=== PATIENT | female | born 1985 ===

== ENCOUNTER → 2017-08-22 | Day surgery (SDC) | payer BC ==
[~2017-08-22] MED LIST: LIDOCAINE HCL 1% PF 30 ML VIAL ONE
[2017-08-22 13:18] VITALS: BP 126/84; PULSE 98; RESP 16; TEMP 98; O2SAT 100
--- NOTE | 2017-08-22 14:24 | RADRPT ---
EXAM DATE/TIME: 08/22/2017 13:20 [place] COMPARISON: No previous studies available for comparison. EXTERNAL COMPARISON: [facility] US, US THYROID, Aug 16 2017. INDICATIONS : Left thyroid nodule. MEDICAL HISTORY : PFO heart SURGICAL HISTORY : None. ENCOUNTER: Initial ACUITY: > 1 yr PAIN SCORE: 1/10 LOCATION: Left neck ORGAN: Left thyroid lobe SPECIMENS: Four fine needle aspirate(s) submitted for pathologic evaluation. DEVICE: 22 gauge needle Post procedure scanning reveals no hematoma or other complication. The possibility does exist that the tissue obtained will be non-diagnostic. If the sample is non-judith gnostic a repeat biopsy or surgical biopsy may need to be performed. TECHNIQUE: 1. Ultrasound guidance for needle biopsy. 2. Needle biopsy. The risks, benefits and alternatives to the procedure were explained and verbal and written consent w as obtained. The site was prepped in sterile fashion. Full sterile technique was used, including ca p, mask, sterile gloves and gown and a large sterile sheet. Hand hygiene and 2% chlorhexidine and/or betadine/alcohol prep was utilized per protocol for cutaneous antisepsis. The skin and subcutaneous tissues were infiltrated with local anesthetic solution. Sterile gel and sterile probe cover were u tilized for ultrasound guidance. With the patient on the ultrasound table, images were obtained. In the left mid to inferior aspect o f the thyroid gland there is a heterogeneous echotexture mostly solid nodule measuring 2.9 x 1.6 x 1. 6 cm. It contains small cystic areas. It also contains echogenic foci, some of which demonstrate ring down artifact indicating colloid. A needle was advanced into the identified target and the number of specimens as above obtained and barnett bmitted for pathologic evaluation. The patient tolerated the procedure well and left the ultrasound suite in stable condition. CONCLUSION: Uncomplicated ultrasound guided needle biopsy of the left thyroid nodule. Wilton Freeman MD on August 22, 2017 at 14:21 Board Certified Radiologist. This report was verified electronically.
== END | disposition home or self-care (01) ==
LOC: HRAD 12:37
PROVIDERS: ATTEND Family Medicine
DX: E04.1 Nontoxic single thyroid nodule (principal)
CPT/HCPCS: 10022; 76942; 88172; 88173